=== PATIENT | male | born 1985 | race Caucasian/White ===

== ENCOUNTER 2024-06-30 12:41 | Inpatient (IN) | payer OTHER, SELFPAY ==
[2024-06-28 18:39] VITALS: BP 148/88
[2024-06-28 19:03] LABS: % Basophils 0.4 % (0-2); % Immature Granulocytes 0.3 % (0-0.5); % Lymphocytes 17.2 % (20.5-51.1); % Monocytes 7.9 % (1.7-9.3); % Neutrophils 73.2 % (42.2-75.2); Absolute Eosinophils 0.1 10^3/uL (0-0.7); Absolute Lymphocytes 1.7 10^3/uL (1.2-3.4); Absolute Monocytes 0.8 10^3/uL (0.1-0.6); Absolute Neutrophils 7.1 10^3/uL (1.4-6.5); Hematocrit 39.3 % (39.0-52.0); Hemoglobin 13.3 g/dL (13.0-18.0); Mean Corp Hgb Conc. 33.8 g/dL (33.0-37.0); Mean Corpuscular Hgb 27.9 pg (27.0-31.0); Mean Corpuscular Volume 82.4 fL (80.0-94.0); Mean Platelet Volume 9.9 fL (7.4-10.4); Nucleated Red Blood Cells % 0 % (-); Platelet Count 288 10^3/uL (130-400); Red Blood Cell Count 4.77 10^6/uL (4.70-6.10); Red Cell Dist. Width 14.2 % (11.5-14.5); White Blood Cell Count 9.7 10^3/uL (4.8-10.8)
[2024-06-28 19:10] LABS: Lactic Acid 1.5 mmol/L (0.7-2.0)
[2024-06-28 19:17] LABS: ALT (SGPT) 24 U/L (0-50); AST (SGOT) 25 U/L (17-59); Albumin 4.9 g/dl (3.5-5.0); Alkaline Phosphatase 100 U/L (38-126); Blood Urea Nitrogen 11 mg/dl (9-20); Calcium 9.5 mg/dl (8.4-10.2); Carbon Dioxide 22 mmol/L (22-30); Chloride 100 mmol/L (98-107); Glucose 141 mg/dl (70-99); Sodium 139 mmol/L (135-145); Total Bilirubin 0.5 mg/dl (0.2-1.3); Total Protein 7.7 g/dl (6.3-8.2); eGFR > 60.00
[2024-06-28] MEDS: DILAUDID 0.5 MG IV ×3 (19:55→23:13)
[2024-06-28] MEDS: NSS 500 IV (19:55)
--- NOTE | 2024-06-28 20:15 | ED.GENMED ---
History of Present Illness
General
Chief Complaint: Abdominal Symptoms
Source: patient
Exam Limitations: none
Time Seen by Provider: 06/28/24 19:26
Nursing documentation reviewed up to this point in time: agreed with
History of Present Illness
History of Present Illness:
Patient presents to ED secondary to intermittent abdominal pain with nausea sensation over the past 2 days, similar to his previous episode of diverticulitis. However, patient also has had multiple abdominal surgeries secondary to diverticulitis,
and also has been admitted in the recent past secondary to bowel obstruction. Patient does report having had normal bowel move this morning. Denies trauma. Denies fever or chills. Denies vomiting. Denies diarrhea. Denies recent change in
medications or diet.
Past History
Past History
ED Past Medical History: Asthma and Other (Diverticulitis)
ED Past Surgical History: Bowel resection (Partial bowel resection with colostomy and reversal, Ileostomy and reversal) and Orthopedic (Right wrist surgery)
Social History
Tobacco: Former smoker
Alcohol: None
Drug: None and Marijuana
Personal: Single
Living: alone
Employment: Employed
Review of Systems
Review of Systems
Allergies reviewed?: Yes
All Other Systems: ROS reviewed and negative except as documented in HPI and ROS
Constitutional: Reports no symptoms; Denies fever
ABD/GI: Reports abdominal pain and nausea; Denies vomiting or diarrhea
: Reports no symptoms
Musculoskeletal: Reports no symptoms
Skin: Reports no symptoms
Neurological: Reports no symptoms
Phy Exam
Physical Exam
Physical Exam:
Physical Exam
General: mild painful distress, not acutely ill. afebrile
Head: nc/at. eomi
Neck: supple. no meningeal signs.
Abdomen: normal bowel sounds. mild diffuse tenderness to palpation, with mild distention. multiple well healed abdominal scars noted.
Neuro: alert and oriented. no focal neurological deficits
Skin: no rash
Psychiatric: well kept. interactive and cooperative
Extremities: no edema. no calf tenderness.
Course
Orders/Labs/Results
Orders:
Orders
06/28/24 18:50
CMP [Comprehensive Metabolic Panel] Urgent
Complete Blood Count/With Diff Urgent
Lactic Acid Urgent
06/28/24 19:38
CR Obstruct Series W/pa Chest Urgent
Comment:
Reason For Exam: abdominal pain w distention
06/28/24 19:39
0.9% Sodium Chloride 500 ml [Nss] 500 ml IV BOLUS
HYDROmorphone [Dilaudid] 0.5 mg IV NOW STA
06/28/24 20:50
Iohexol [Omnipaque] See Protocol PO NOW STA
06/28/24 20:51
CT Abd/pel W Iv And Oral Contr Urgent
Comment:
Reason For Exam: abdominal pain
06/28/24 21:29
HYDROmorphone [Dilaudid] 0.5 mg IV NOW STA
06/28/24 21:30
HYDROmorphone [Dilaudid] 0.5 mg .ROUTE .STK-MED ONE
06/28/24 23:10
HYDROmorphone [Dilaudid] 0.5 mg IV NOW STA
Ondansetron Injectable [Zofran] 4 mg IV NOW STA
06/28/24 23:12
Ondansetron Injectable [Zofran] 4 mg .ROUTE .STK-MED ONE
Abnormal Lab Results
06/28/24
18:50
Absolute Neuts (auto) 7.1 H 10^3/uL
(1.4-6.5)
Absolute Monos (auto) 0.8 H 10^3/uL
(0.1-0.6)
Lymphocytes % 17.2 L %
(20.5-51.1)
Glucose 141 H mg/dl
(70-99)
06/28/24 18:50
06/28/24 18:50
Vital Signs
Initial and Last Documented VS:
Initial Vital Signs
Temp Pulse Resp BP Pulse Ox
100.1 F 107 18 148/88 97
06/28/24 18:39 06/28/24 18:39 06/28/24 18:39 06/28/24 18:39 06/28/24 18:39
Last Documented Vital Signs
Temp Pulse Resp BP Pulse Ox
100.1 F 73 18 143/69 99
06/28/24 18:39 06/28/24 23:43 06/28/24 23:43 06/28/24 23:43 06/28/24 23:43
MDM/Problems Addressed
MDM/Problems Addressed:
CT report reviewed and discussed with patient, with differential diagnosis of enteritis versus ileus versus partial bowel obstruction. In light of patient's persistent pain despite medications provided, patient will be admitted for further
evaluation and treatment.
ED Attending Note
-
Portions of this chart may have been created with voice recognition software.� Occasional wrong word or��sound alike� substitutions may have occurred due to the inherent limitations of voice recognition software.
Discharge Plan
Departure
Patient Disposition: Admit
Date of Disposition: 06/29/24
Time of Disposition: 00:02
Presentation/result/management discussed w/ accepting MD/DO: Hospitalist
Discharge Problem:
Partial bowel obstruction
Prescriptions:
No Action
omeprazole 20 mg Tablet,Delayed Release (Dr/Ec)
20 mg PO DAILY
polyethylene glycol 3350 [HealthyLax] 17 gram Powder In Packet
17 g PO DAILY 30 Days Qty: 30 0RF
Rx Instructions:
hold if diarrhea
levofloxacin 500 mg tablet
500 mg PO DAILY 6 Days Qty: 6 0RF
metronidazole 500 mg tablet
500 mg PO Q8H 6 Days Qty: 18 0RF
oxycodone 5 mg tablet
5 mg PO BID PRN (Reason: moderate severe pain) 5 Days Qty: 10 0RF
Rx Instructions:
Use if pain not relieved by Tylenol
Referrals:
NONE,* [Family Provider] -
Interventions
Interventions:
*Risk Screen - Suicide Last Done: 06/28/24 18:39
*General Assessment Last Done: 06/28/24 20:17
*Neglect/Abuse Screening Last Done: 06/28/24 18:39
ED- Fall Risk Assessment Last Done: 06/28/24 20:17
*ED COVID-19 Vaccine History Last Done: 06/28/24 20:17
RX-Ljbalf-Azmbsmdova Assessment Last Done: 06/28/24 20:16
Discharge Date and Time
Print Language: CROATIAN
[2024-06-28] MEDS: OMNIPAQUE 50 ML PO (20:55)
[2024-06-28] MEDS: ZOFRAN 4 MG IV (23:13)
[2024-06-28 23:43] VITALS: BP 143/69
[2024-06-29] MEDS: NSS 500 IV (00:24)
--- NOTE | 2024-06-29 01:05 | HPS.HSE ---
Family Physician
-
Family Physician: * NONE
Chief Complaint
-
Abdominal pain and nausea
History of Present Illness
This is a 39-year-old male with a past medical history of diverticulitis status post multiple bowel resections for recurrent diverticulitis presented to the emergent department with 1 day of abdominal symptoms.
Patient had last diverticulitis flare about 8 months ago not requiring a bowel resection at that time. He has however had multiple bowel resections with forced colostomy and then reanastomosis followed by ileostomy and reanastomosis. He reports
that he started having feeling of on easiness and hiccups then abdominal pain that started 1 day ago. He vomited once on arrival in the emergency department. He denies fevers or chills. He denies diarrhea. No known sick contacts. Denies
abdominal bloating. Denies any new medications.
In the ED he had a temp of 100, blood pressure was normal at 143/60, heart rate was normal for CBC was normal which was within normal limits. The CT scan of the abdomen and pelvis pelvis shows partial small bowel obstruction with filled loops of
small bowel adjacent to the anastomosis and some surrounding stranding.
Medical History
Past Medical History
Past Medical History: Reports GERD and Other (Diverticulitis)
Past Surgical History: Reports Bowel Resection
Social History
Tobacco: Non-smoker
Alcohol: None
Drug: Marijuana
Personal: Single
Living: Alone
Employment: Employed
Family History
Family History: Not pertinent
Allergies / Home Medications
Allergies reflects when Allergies were last updated in [facility].
Home Medications with original date entered in [facility]
Allergy/Medication List:
Allergies
Allergy/AdvReac Type Severity Reaction Status Date / Time
Penicillins Allergy as a baby; Verified 02/01/23 00:32
tolerated
Zosyn and
cephalosporins
Home Medications
omeprazole 20 mg tablet,delayed release 20 mg PO DAILY Gastrointestinal Issue 05/30/23
Review of Systems
-
History Source: Patient
Constitutional: Reports No Symptoms
EENT: Reports No Symptoms
Respiratory: Reports No Symptoms
Abdomen/GI: Reports Abdominal Pain and Nausea
: Reports No Symptoms
Musculoskeletal: Reports No Symptoms
Neurological: Reports No Symptoms
Endocrine: Reports No Symptoms
Hematologic/Lymphatic: Reports No Symptoms
Psych: Reports No Symptoms
Physical Exam
Vital Signs
Vital Signs
Temp Pulse Resp BP Pulse Ox
100.1 F 73 18 143/69 99
06/28/24 18:39 06/28/24 23:43 06/28/24 23:43 06/28/24 23:43 06/28/24 23:43
Physical Exam
General: Well Developed, Well Nourished, No Apparent Distress and Comfortable
HEENT: NormoCephalic, Anicteric, Moist mucous membranes and Atraumatic
Respiratory: Clear
Cardiac: S1/S2 and Regular Rhythm
Breast: Deferred by me
GI: Soft, Non Tender and Non Distended
Rectal: Deferred by Provider
Genito-urinary: Deferred by me
Musculoskeletal: No Clubbing, No Cyanosis and No Edema
Skin: Warm
Neuro: AO x 3
Hematologic/Lymphatic: No Lymphadenopathy
Psych: Calm
Laboratory Results
-
06/28/24 18:50
06/28/24 18:50
Laboratory Results
Lactic Acid 1.5 mmol/L (0.7-2.0) 06/28/24 18:50
Total Bilirubin 0.5 mg/dl (0.2-1.3) 06/28/24 18:50
AST 25 U/L (17-59) 06/28/24 18:50
ALT 24 U/L (0-50) 06/28/24 18:50
Alkaline Phosphatase 100 U/L (38-126) 06/28/24 18:50
Data Reviewed
-
Diagnostic Radiology: Image Personally Visualized and interpreted
CT Scan: Report Reviewed by me
Lab Data: Labs Reviewed by me
Old Records: Reviewed
Impression/Plan
-
IMPRESSION:
39-year-old with history of recurrent diverticulitis status post multiple intra-abdominal surgeries for bowel resection who presents to the emergency department with abdominal pain and was found to have partial small bowel obstruction.
PLAN:
1. SBO -patient with abdominal pain, nausea and only 1 episode of clear vomiting. CT scan shows a partial small bowel obstruction. Abdominal exam is benign. Patient is nontoxic and hemodynamically stable. Low-grade temperature. Labs are
unremarkable.
- admit to med/surg obs
- NPO
- pain control and antiemetics, iv fluids
- no indiction for NG at this time
- consulted GI surgery (Patient of Dr. Bernard)
- ppi iv
DVT ppx - lovenox sq
Code Status - full code
[2024-06-29 01:50] VITALS: BP 121/70; BMI 27.5
[2024-06-29] MEDS: DILAUDID 0.5 MG IV ×5 (01:56→22:01)
[2024-06-29] MEDS: D5/0.45%NACL 1000 IV ×2 (01:59→21:00)
--- NOTE | 2024-06-29 03:05 | PTCARENOTE ---
patient admitted to 2124. oriented to room and POC. inst ammonia print operator juarez. call juarez within reach. admission assessment completed, IV nss infused 500cc, IV changed to d51/2 nss @75cc/hr.
--- NOTE | 2024-06-29 03:08 | PTCARENOTE ---
Called to pt room for IV dislodged. IV found to be completely out, IV team paged to place new line
[2024-06-29] MEDS: TORADOL 10 MG IV ×2 (03:42→11:39)
[2024-06-29 07:29] VITALS: BP 102/64
[2024-06-29 07:40] LABS: Blood Urea Nitrogen 11 mg/dl (9-20); Calcium 8.8 mg/dl (8.4-10.2); Carbon Dioxide 26 mmol/L (22-30); Chloride 100 mmol/L (98-107); Estimated Creatinine Clearance 101 ml/min; Glucose 97 mg/dl (70-99); Sodium 141 mmol/L (135-145); eGFR > 60.00
--- NOTE | 2024-06-29 08:11 | W.PN.HOSP.TC ---
Addendum entered and electronically signed by Norman Caldera MD 06/29/24 09:56:
I saw and evaluated the patient. I reviewed the resident�s note and agree with findings and plan as documented in the resident�s note.
Patient reports 1 episode of vomiting since admission that he describes as 'gagging.'
Gen: NAD, AAOx3.
Eyes: EOMI, PERRLA, no scleral icterus.
Neck: supple.
CV: RRR, +S1/S2, no m/r/g.
Resp: CTAB, no rales, wheezes, or rhonchi.
Abd: +BS, soft, mild distention and TTP
Skin: No rashes.
Neuro: CN 2-12 intact, non-focal.
Psych: Normal mood and affect.
CT A/P: Dilated small bowel loops containing fecal material just proximal to the right lower quadrant anastomosis. Bowel loops downstream to the anastomosis are decompressed. Oral contrast is not present in the dilated small bowel loops, either due
to decreased motility or acquisition prior to the contrast reaching this level. Small bowel loops demonstrate mild wall thickening with surrounding inflammatory changes, likely representing superimposed inflammation/infection. Similar findings were
seen previously on 05/30/2023, however the small bowel loops are more dilated on the current examination. Overall, findings favor either a partial small bowel obstruction or anastomotic stricture resulting in decreased motility. Consider repeat
abdominal radiograph to evaluate for oral contrast passage through the anastomosis. Stable postsurgical defects in the ventral abdominal wall.
Acute SBO:
-CT A/P reviewed, pt afebrile (no temps 100.4 F or greater) and without leukocytosis. Doubt acute infection. More likely findings on CT scan related to inflammation.
-NPO/IVFs, bowel rest
-c/s surgery
-check abd Xray to assess for passage of contrast
Original Note:
Today's Communication/Plan
-
C/w NPO, IVF, IV pain control/PPI.
Assessment / Plan
Assessment / Plan
39 year old male with a past medical history of chronic diverticulitis s/p multiple bowel resections who presented to the [facility] for 1 day of vomiting, abdominal pain.
#Partial Bowel Obstruction vs. Anastomotic Stricture
- Non-toxic, hemodynamically stable, Temp 100F, no leukocytosis
- CT Abd/Pelvis - dilation of multiple small bowel loops proximal to the right lower quadrant anastomosis, with the loops containing fecal material. Bowel wall thickening w/ mild surrounding inflammation. Suggestive of Partial SBO vs. Anastomotic
Stricture.
- Keep NPO, IVF D5 1/2NS 77cc/hr
- Tylenol/Toradol/Dilaudid prn for mild/mod/severe pain
- Zofran prn
- Colorectal Surgery consult placed; will observe for now.
#GERD - IV Protonix as above
#Dispo - Med/Surg
#Diet - NPO
#DVT PPx - Lovenox SC
#Code Status - Full Code
Anticipated Discharge: 24 - 48 hours
Subjective/Interval History
-
Overnight he required Toradol & dilaudid for pain control. nausea persisted but was improved with Zofran. No vomiting, fevers overnight. This morning he is experiencing nausea. Last bowel movement was the morning before presentation to the ED. It
was nonbloody, non painful to pass. Non-toxic in appearance with moments of painful distress.
Objective Data
-
Labs:
Laboratory Results
06/29/24
06:08
Sodium 141
Potassium 4.0
Chloride 100
Carbon Dioxide 26
BUN 11
Creatinine 0.9
Glucose 97
Calcium 8.8
Vital Signs:
Vital Signs
Temp Pulse Resp BP Pulse Ox
98.1 F 58 17 102/64 99
06/29/24 07:29 06/29/24 07:29 06/29/24 07:29 06/29/24 07:29 06/29/24 07:29
I&O
06/28/24 06/29/24 06/30/24
06:59 06:59 06:59
Intake Total 865 / 875
Balance 875 / 875
Review of Systems
-
History Source: Patient
All other systems: Reviewed and negative
Constitutional: Reports No Appetite; Denies Fever or Night Sweats
EENT: Reports No Symptoms Reported
Respiratory: Reports No Symptoms
Cardiac: Reports No Symptoms
Abdomen/GI: Reports Abdominal Pain, Nausea and Bloated; Denies Vomiting or Diarrhea
Breast: Reports N/A
Genitourinary: Reports No Symptoms
Musculoskeletal: Reports No Symptoms
Skin: Reports No Symptoms
Neuro: Reports No Symptoms
Endocrine: Reports No Symptoms
Hematologic / Lymphatic: Reports No Symptoms
Allergy / Immunology: Reports No Symptoms
Physical Exam
-
General: Well Developed, Well Nourished and Pain
HEENT: Normocephalic, Atraumatic and Moist Mucous Membranes
Respiratory: Clear to Auscultation; Negative Rales or Rhonchi
Cardiac: Regular Rhythm and S1/S2; Negative Murmur or Rub
Breast: N/A
GI: Soft, Tender, Distended and Other (Past ileostomy and colostomy surgical sites w/o herniation.); Negative Normal Bowel Sounds (hypoactive)
Genito-urinary: Deferred by me
Musculoskeletal: No Clubbing, No Cyanosis and No Edema
Neuro: Awake, Alert, Oriented, No Motor Deficits and No Sensory Deficits
Psych: Calm
[2024-06-29] MEDS: ZOFRAN 4 MG IV ×2 (09:20→17:20)
[2024-06-29] MEDS: PROTONIX IV 40 MG IV (09:48)
[2024-06-29] MEDS: NSS (PRESERVATIVE FREE) 10 ML IV (09:48)
--- NOTE | 2024-06-29 10:12 | CON.CRS ---
Consultation
-
Date/Time Consultation Requested: 06/29/2024, 01:43
Date/Time Consultation Performed: 06/29/2024, 08:50
Requesting Provider: Monserrat Klein MD
Performing Provider: Donald Mckenzie MD
Reason for Consultation: SBO
Medical History
-
Chief Complaint: abdominal pain
History of Present Illness:
39-year-old male known to our service after undergoing emergency sigmoid resection and colostomy on 03/01/2022 for perforated sigmoid diverticulitis and subsequently a colostomy closure on 09/2022 complicated by a leak. He then underwent a repair
and diverting loop ileostomy which was subsequently closed on 12/10/2022. He was then admitted 8 days later with a small bowel obstruction that resolved without surgery. He was readmitted with a second small bowel obstruction and underwent a
laparotomy on 03/04/2023. At that time there was a localized abscess at the previous ileostomy closure site. A new anastomosis was created. He was then readmitted on 05/31/2023 with a partial small bowel obstruction that resolved without surgery.
He had been doing well until a couple months ago where he had been feeling 'blocked' and went to [facility]. He was diagnosed with a small bowel obstruction and was admitted for 2 or 3 days without surgery. He continued to feel well
until about 2 days ago where he had abdominal pain, nausea, and unable to eat for about 2 days. His last bowel movement was yesterday morning and his last flatus was 2 days ago. Subsequently he went to [place] [facility] given his symptoms.
In the ER his CT of the abdomen and pelvis showed dilated small bowel loops containing fecal material just proximal to the right lower quadrant anastomosis. There are bowel loops downstream to the anastomosis that are decompressed. Findings were
seen previously on 05/30/2023. Overall findings favor a partial small bowel obstruction or anastomotic stricture resulting in decreased mobility. The patient's WBC was 6.0 on admission and 9.7 today. He has remained afebrile and his vital signs
remain normal. We have been consulted for further surgical opinion.
Past Medical History
Past Medical History: Other (Asthma, Diverticulitis and GERD)
Past Surgical History: Other (Bowel Resection (as per the HPI))
Social History
Tobacco: Former Smoker
Alcohol: None
Drug: Marijuana
Personal: Single
Living: Alone
Employment: Employed
Family History
Family History: Reviewed & Not Pertinent
Allergies / Home Medications
Allergy/AdvReac Type Severity Reaction Status Date / Time
Penicillins Allergy as a baby; Verified 02/01/23 00:32
tolerated
Zosyn and
cephalosporins
�Medication �Instructions �Recorded �Confirmed �Type
omeprazole 20 mg tablet,delayed 20 mg PO DAILY Gastrointestinal 05/30/23 05/30/23 History
release Issue
levofloxacin 500 mg tablet 500 mg PO DAILY 6 days #6 tabs 06/03/23 Rx
metronidazole 500 mg tablet 500 mg PO Q8H 6 days #18 tabs 06/03/23 Rx
oxycodone 5 mg tablet 5 mg PO BID PRN moderate severe 06/03/23 Rx
pain 5 days #10 tabs
polyethylene glycol 3350 17 gram 17 g PO DAILY 30 days #30 ea 06/03/23 Rx
oral powder packet (HealthyLax)
Review of Systems
-
History Source: Patient
All other systems: Negative unless noted
Abdomen/GI: Abdominal Pain, Nausea and Constipated
A 10 point review of systems was completed, and was negative except as per HPI.
Physical Exam
Vital Signs
Temp 98.1 F 06/29/24 07:29
Pulse 58 06/29/24 07:29
Resp Rate 17 06/29/24 07:29
Blood pressure 102/64 06/29/24 07:29
SaO2 99 06/29/24 09:29
06/28/24 06/29/24 06/30/24
06:59 06:59 06:59
Actual Weight 79.696 kg
Body Mass Index (BMI) 27.5
Lab Results / Allergies
06/28/24 18:50
06/29/24 06:08
WBC 9.7 10^3/uL (4.8-10.8) 06/28/24 18:50
Hgb 13.3 g/dL (13.0-18.0) 06/28/24 18:50
Hct 39.3 % (39.0-52.0) 06/28/24 18:50
Plt Count 288 10^3/uL (130-400) 06/28/24 18:50
Abs Immat Gran (auto) 0.0 10^3/uL (0-0.05) 06/28/24 18:50
Neutrophils % 73.2 % (42.2-75.2) 06/28/24 18:50
Allergy/AdvReac Type Severity Reaction Status Date / Time
Penicillins Allergy as a baby; Verified 02/01/23 00:32
tolerated
Zosyn and
cephalosporins
Physical Exam
General: Well Developed, Well Nourished and No Apparent Distress
GI: Soft, Tender (mild) and Distended (mild)
Skin: Warm and Dry
Neuro: AO x 3
Psych: Calm
Data Reviewed
-
CT Scan: Image Personally Visualized and interpreted, Report Reviewed by me and Discussed with Patient
Labs: Labs Reviewed by me, Discussed with Physician and Discussed with Patient
Old Records: Reviewed
Assessment / Plan
-
Assessment: 39-year-old male with a past medical history of sigmoid resection and colostomy due to perforated sigmoid diverticulitis with subsequent colostomy closure complicated by a leak and diverting loop ileostomy which was closed last year and
multiple small bowel obstructions since, now admitted with a small bowel obstruction
Plan
-No plans for surgery at this time
-Remain n.p.o. with IV fluids
- Abdominal x-rays in the morning
- Encourage patient to get out of bed and walk
- Will require an NG tube if episodes of vomiting
--- NOTE | 2024-06-29 17:23 | PTCARENOTE ---
pt received prn zofran this evening from this nurse for nausea and dry heaving. see MAR for proper documentation.
[2024-06-29 23:23] VITALS: BP 137/91
[2024-06-30 07:20] VITALS: BP 119/69
[2024-06-30] MEDS: NSS (PRESERVATIVE FREE) 10 ML IV (08:21)
[2024-06-30] MEDS: PROTONIX IV 40 MG IV (08:21)
[2024-06-30] MEDS: DILAUDID 0.5 MG IV ×3 (08:22→23:35)
[2024-06-30] MEDS: D5/0.45%NACL 1000 IV ×2 (08:24→21:14)
--- NOTE | 2024-06-30 08:41 | W.PN.CRS1 ---
Today's Communication / Plan
-
clears
Assessment/Plan
-
Assessment: 39-year-old male with a past medical history of sigmoid resection and colostomy due to perforated sigmoid diverticulitis with subsequent colostomy closure complicated by a leak and diverting loop ileostomy which was closed last year and
multiple small bowel obstructions since, now admitted with a small bowel obstruction
Plan
-No plans for surgery at this time
-Advance diet to clears. If has flatus later today, will advanec diet.
- Abdominal x-rays from yesterday show nonspecific bowel gas pattern without convincing signs of obstruction.
- Encouraged patient to get out of bed and walk
- Will require an NG tube if episodes of vomiting
Subjective Data
Subjective Data
Date of Service: June 30, 2024
Patient states he has some mild right sided pain. He overall feels better. He did have an episode of vomiting last night but it was after IV Dilaudid. He states he has not been nauseous since.
Objective Data
-
Vital Signs
Temp Pulse Resp BP Pulse Ox
98.5 F 63 18 119/69 96
06/30/24 07:20 06/30/24 07:20 06/30/24 07:20 06/30/24 07:20 06/30/24 07:20
Intake & Output
06/29/24 06/30/24 07/01/24
06:59 06:59 06:59
Intake Total 875 / 875 1650 / 1650
Balance 875 / 875 1650 / 1650
Intake:
IV fluids (Total) 875 / 875 1650 / 1650
Other:
Number of approximated SMALL 1
amounts of urine
Number of approximated MODERATE 1 2
amounts of urine
Lab Results
06/28/24 18:50
06/29/24 06:08
Physical Exam
-
General: No Acute Distress and AOx3
Abdomen: Soft, Distended (mild) and Tender (mild right sided)
Skin: Warm and Dry
--- NOTE | 2024-06-30 09:54 | W.PN.HOSP.TC ---
Addendum entered and electronically signed by Michael Reza MD 06/30/24 12:28:
39-year-old male with history of sigmoid resection colostomy secondary to perforated sigmoid diverticulitis and subsequent colostomy closure complicated by leak and diverting loop ileostomy. Diverting loop ileostomy was closed last year. Patient
has a history of multiple small bowel obstructions since then.
I personally performed a history and physical exam of the patient and discussed management with the resident. I reviewed the resident's note and agree with the documented findings and plan of care HPI/CC except changes in my documentation.
CVS: S1-S2 normal
Chest: CTA B/L
Abdomen: Soft, , No BS, Mild right sided tenderness
Extremities: No edema, normal pulses
ECOSYSTEM ECOLOGY PROFESSOR: Non focal exam
# Small bowel obstruction
Conservative management
No plan for surgery now
Clear liquid started
Encourage ambulation
Avoid narcotics
# History of perforated sigmoid diverticulitis with sigmoid resection and colostomy 2021.
Colostomy closure complicated by leak and diverting loop ileostomy
Diverting loop ileostomy closed -November 2022
# Asthma-stable
# GERD-continue PPI
# Ex-smoker
# DVT prophylaxis-Lovenox
# Full code
Part of this note was created using voice recognition system. Occasional wrong word or��sound alike� substitutions may have inadvertently occurred due to the inherent limitations of voice recognition software. If noted kindly bring it to my
attention for correction.
Original Note:
Today's Communication/Plan
-
C/w IVF, pain medications, IV zofran, advance diet to clears
Assessment / Plan
Assessment / Plan
39 year old male with a past medical history of chronic diverticulitis s/p multiple bowel resections who presented to the [facility] for 1 day of vomiting, abdominal pain.
#Partial Bowel Obstruction vs. Anastomotic Stricture
- Non-toxic, hemodynamically stable, afebrile overnight, no leukocytosis
- CT Abd/Pelvis - dilation of multiple small bowel loops proximal to the right lower quadrant anastomosis, with the loops containing fecal material. Bowel wall thickening w/ mild surrounding inflammation. Suggestive of Partial SBO vs. Anastomotic
Stricture.
- Keep NPO, IVF D5 1/2NS 77cc/hr
- Tylenol/Toradol/Dilaudid prn for mild/mod/severe pain
- Zofran prn
- Colorectal Surgery consult placed; will observe for now.
- Will advance to clear liquid diet today and observe for symptoms, possibly advance to solids
#GERD - IV Protonix as above
#Dispo - Med/Surg
#Diet - Clear Liquids
#DVT PPx - Lovenox SC
#Code Status - Full Code
Anticipated Discharge: 24 - 48 hours
Subjective/Interval History
-
Feels well this morning. Had some abdominal pain last night which required one dose of IV dilaudid. pain is in the same R upper quadrant, but is less in intensity compared to yesterday. He has no other acute complaints at this time.
Objective Data
-
Vital Signs:
Vital Signs
Temp Pulse Resp BP Pulse Ox
98.5 F 63 18 119/69 96
06/30/24 07:20 06/30/24 07:20 06/30/24 07:20 06/30/24 07:20 06/30/24 07:20
I&O
06/29/24 06/30/24 07/01/24
06:59 06:59 06:59
Intake Total 875 / 875 1650 / 1650
Balance 875 / 875 1650 / 1650
Review of Systems
-
History Source: Patient
All other systems: Reviewed and negative
Abdomen/GI: Reports Abdominal Pain and Nausea
Physical Exam
-
General: Well Developed, Well Nourished, No Apparent Distress, Comfortable and Conversant
HEENT: Normocephalic, Atraumatic, Moist Mucous Membranes, Anicteric, [place] Conjunctivae and PERRLA
Respiratory: Clear to Auscultation; Negative Wheezes, Rales or Rhonchi
Cardiac: Regular Rhythm and S1/S2; Negative Murmur or Rub
Breast: N/A
GI: Soft, Tender (R upper quadrant near prior ileostomy site) and Distended; Negative Normal Bowel Sounds (hypoactive bowel sounds) or No Hernias
Musculoskeletal: No Clubbing, No Cyanosis and No Edema
Neuro: Awake, Alert and Oriented
[2024-06-30] MEDS: TYLENOL 650 MG PO (10:04)
[2024-06-30] MEDS: TORADOL 10 MG IV (14:20)
[2024-06-30 15:20] VITALS: BP 124/64
--- NOTE | 2024-06-30 16:08 | CM ---
Addendum entered by Huong Riley 06/30/24 16:14:
patient also states he is having difficulties with bills and CM provided information about supports.
Original Note:
Patient seen at bedside. Patient understands that he was admitted as OBS and is now changed to INP status. Patient confirmed that he lives in [place] to [facility] for the residency program. Patient does not have a copy of his insurance card and would
like to call the member service to follow up on physician options. Patient does not have a PCP. Patient uses the [facility] in [place]. Patient has a car here for transportation home. CM will continue to follow for discharge planning needs.
Plan; home with no needs; follow up with insurance for PCP options
[2024-06-30 23:48] VITALS: BP 138/78
[2024-07-01 07:25] VITALS: BP 100/61
[2024-07-01 07:34] LABS: Hematocrit 33.4 % (39.0-52.0); Hemoglobin 11.2 g/dL (13.0-18.0); Mean Corp Hgb Conc. 33.5 g/dL (33.0-37.0); Mean Corpuscular Hgb 27.9 pg (27.0-31.0); Mean Corpuscular Volume 83.3 fL (80.0-94.0); Mean Platelet Volume 9.9 fL (7.4-10.4); Platelet Count 249 10^3/uL (130-400); Red Blood Cell Count 4.01 10^6/uL (4.70-6.10); Red Cell Dist. Width 14.1 % (11.5-14.5); White Blood Cell Count 5.2 10^3/uL (4.8-10.8)
[2024-07-01 08:03] LABS: Blood Urea Nitrogen 10 mg/dl (9-20); Calcium 8.9 mg/dl (8.4-10.2); Carbon Dioxide 30 mmol/L (22-30); Chloride 103 mmol/L (98-107); Estimated Creatinine Clearance 101 ml/min; Glucose 100 mg/dl (70-99); Potassium 4.5 mmol/L (3.5-5.1); Sodium 140 mmol/L (135-145); eGFR > 60.00
[2024-07-01] MEDS: TORADOL 10 MG IV (09:14)
[2024-07-01] MEDS: NSS (PRESERVATIVE FREE) 10 ML IV (09:16)
[2024-07-01] MEDS: PROTONIX IV 40 MG IV (09:16)
--- NOTE | 2024-07-01 09:28 | W.PN.CRS1 ---
Today's Communication / Plan
-
Diet advancement
Assessment/Plan
-
Assessment: 39-year-old male with a past medical history of sigmoid resection and colostomy due to perforated sigmoid diverticulitis with subsequent colostomy closure complicated by a leak and diverting loop ileostomy which was closed last year and
multiple small bowel obstructions since, now admitted with a small bowel obstruction
AFVSS
Labs stable
06/29 Abdominal x-rays showed nonspecific bowel gas pattern without convincing signs of obstruction.
Tolerating diet with +flatus
Plan
-No plans for surgery at this time
-Advance diet to low residue
-Clear from surgical standpoint for d/c once tolerating diet
Subjective Data
Subjective Data
Date of Service: July 01, 2024
Patient seen and examined at bedside with Dr. Saldaña. Denies n/v. Tolerating clears. Passing quite a bit of flatus. Denies pain. Ambulating in room
Objective Data
-
Vital Signs
Temp Pulse Resp BP Pulse Ox
98.6 F 70 16 100/61 97
07/01/24 07:25 07/01/24 07:25 07/01/24 07:25 07/01/24 07:25 07/01/24 07:25
Intake & Output
06/30/24 07/01/24 07/02/24
06:59 06:59 06:59
Intake Total 1650 / 1650 2820 / 2820
Balance 1650 / 1650 2820 / 2820
Intake:
Oral fluids 1919 / 192
IV fluids (Total) 1650 / 1650 900 / 900
Other:
Number of approximated MODERATE 2 2
amounts of urine
Lab Results
07/01/24 06:40
07/01/24 06:40
Physical Exam
-
General: No Acute Distress and AOx3
Abdomen: Soft, Distended (mild) and Other (incisional hernia/umbilical hernia soft/reducible but tender)
Skin: Warm and Dry
--- NOTE | 2024-07-01 09:59 | W.PN.HOSP.TC ---
Today's Communication/Plan
-
See how he tolerates LR diet
Assessment / Plan
Assessment / Plan
39 year old male with a past medical history of chronic diverticulitis s/p multiple bowel resections who presented to the [facility] for 1 day of vomiting, abdominal pain.
Has flatus today
CVS: S1-S2 normal
Chest: CTA B/L
Abdomen: Soft,mild right sided tenderness, no guarding, BS decreased.
Extremities: No edema
# Small bowel obstruction
Passing flatus
Conservative management
No plan for surgery now
LR diet started
Awaiting a BM
Encourage ambulation
Avoid narcotics
# History of perforated sigmoid diverticulitis with sigmoid resection and colostomy 2021.
Colostomy closure complicated by leak and diverting loop ileostomy
Diverting loop ileostomy closed -November 2022
# Asthma-stable
# GERD-continue PPI
# Ex-smoker
# DVT prophylaxis-Lovenox
# Full code
D/W RN at bed side
Part of this note was created using voice recognition system. Occasional wrong word or��sound alike� substitutions may have inadvertently occurred due to the inherent limitations of voice recognition software. If noted kindly bring it to my
attention for correction.
Anticipated Discharge: Within 24 hours
Subjective/Interval History
-
Date of Service: July 01, 2024
Objective Data
-
Labs:
Laboratory Results
07/01/24
06:40
WBC 5.2
Hgb 11.2 L
Hct 33.4 L
Plt Count 249
Sodium 140
Potassium 4.5
Chloride 103
Carbon Dioxide 30
BUN 10
Creatinine 0.9
Glucose 100 H
Calcium 8.9
Vital Signs:
Vital Signs
Temp Pulse Resp BP Pulse Ox
98.6 F 70 16 100/61 97
07/01/24 07:25 07/01/24 07:25 07/01/24 07:25 07/01/24 07:25 07/01/24 07:25
I&O
06/30/24 07/01/24 07/02/24
06:59 06:59 06:59
Intake Total 1650 / 1650 2820 / 2820
Balance 1650 / 1650 2820 / 2820
[2024-07-01] MEDS: D5/0.45%NACL IV (10:31)
[2024-07-01 15:10] VITALS: BP 142/82
[2024-07-01 22:47] VITALS: BP 152/92
[2024-07-02 07:20] VITALS: BP 108/56
--- NOTE | 2024-07-02 08:33 | W.PN.CRS1 ---
Addendum entered and electronically signed by Kiran Saldaña MD 07/02/24 10:34:
I saw and examined the patient independently.
The Card Puncher's note was reviewed and I agree with the note, assessment and plan except where noted below.
Comment: 39-year-old male with recurrent small bowel obstructions here with similar, now clinically resolved.
Tolerating a low residue diet
Clear from the surgical standpoint for discharge per primary team.
Follow-up with colorectal surgery as needed.
Original Note:
Today's Communication / Plan
-
dispo planning
Assessment/Plan
-
Assessment: 39-year-old male with a past medical history of sigmoid resection and colostomy due to perforated sigmoid diverticulitis with subsequent colostomy closure complicated by a leak and diverting loop ileostomy which was closed last year and
multiple small bowel obstructions since, now admitted with a small bowel obstruction
AFVSS
06/29 Abdominal x-rays showed nonspecific bowel gas pattern without convincing signs of obstruction.
Tolerating diet with +flatus/BM's
Plan
-c/w LRD
-Clear from surgical standpoint for discharge, final dispo as per primary team
Subjective Data
Subjective Data
Date of Service: July 02, 2024
Patient seen and examined at bedside with Dr. Saldaña. Denies n/v. tolerating diet. Denies pain. Passing flatus/stools.
Objective Data
-
Vital Signs
Temp Pulse Resp BP Pulse Ox
97.9 F 62 16 108/56 98
07/02/24 07:20 07/02/24 07:20 07/02/24 07:20 07/02/24 07:20 07/02/24 07:20
Intake & Output
07/01/24 07/02/24 07/03/24
06:59 06:59 06:59
Intake Total 2820 / 2820 1580 / 1580
Balance 2819 / 2819 158 / 1579
Intake:
Oral fluids 1919
IV fluids (Total) 900 / 900
Other:
Number of approximated MODERATE 2 3
amounts of urine
Number of approximated LARGE 3
amounts of urine
Number of unmeasured liquid
stools
Rectum 1
Lab Results
07/01/24 06:40
07/01/24 06:40
Physical Exam
-
General: No Acute Distress and AOx3
Abdomen: Soft, Non Distended, Non Tender and Other (incisional hernia/umbilical hernia soft/reducible )
Skin: Warm and Dry
[2024-07-02] MEDS: NSS (PRESERVATIVE FREE) 10 ML IV (09:38)
[2024-07-02] MEDS: PROTONIX IV 40 MG IV (09:38)
--- NOTE | 2024-07-02 14:15 | W.PN.HOSP.TC ---
Today's Communication/Plan
-
discharge
Assessment / Plan
Assessment / Plan
39 year old male with a past medical history of chronic diverticulitis s/p multiple bowel resections who presented to the [facility] for 1 day of vomiting, abdominal pain.
Having bowel movements.
CVS: S1-S2 normal
Chest: CTA B/L
Abdomen: Soft,mild right sided tenderness, no guarding, BS decreased.
Extremities: No edema
# Small bowel obstruction
Resolved with conservative management
Tolerating LR diet.
# History of perforated sigmoid diverticulitis with sigmoid resection and colostomy 2021.
Colostomy closure complicated by leak and diverting loop ileostomy
Diverting loop ileostomy closed -November 2022
# Asthma-stable
# GERD-continue PPI
# Ex-smoker
# DVT prophylaxis-Lovenox
# Full code
D/W RN
Part of this note was created using voice recognition system. Occasional wrong word or��sound alike� substitutions may have inadvertently occurred due to the inherent limitations of voice recognition software. If noted kindly bring it to my
attention for correction.
Anticipated Discharge: Today
Subjective/Interval History
-
Date of Service: July 02, 2024
Objective Data
-
Vital Signs:
Vital Signs
Temp Pulse Resp BP Pulse Ox
97.9 F 62 16 108/56 98
07/02/24 07:20 07/02/24 07:20 07/02/24 07:20 07/02/24 07:20 07/02/24 08:30
I&O
07/01/24 07/02/24 07/03/24
06:59 06:59 06:59
Intake Total 2820 / 2820 1580 / 1580 780 / 780
Balance 2820 / 2820 1580 / 1580 780 / 780
--- NOTE | 2024-07-02 14:28 | W.DS.TRANS ---
Addendum entered and electronically signed by Michael Reza MD 07/02/24 15:00:
Dictation- [id number]
Original Note:
DC Summary - Receptionist Nurse
-
Discharge Instructions:
Discharge Diagnosis/Procedures Small bowel obstruction, GERD
Diet Low Fiber
Activity As tolerated
Driving Restrictions As prior to admission
Instructions: Low Fiber Diet
Stand-Alone Forms:
Changes to Home Medications: No
Discharge Medications:
DC Medications w/original date entered in [email or web address]
omeprazole 20 mg tablet,delayed release 20 mg PO DAILY Gastrointestinal Issue 05/30/23
acetaminophen 325 mg tablet 650 mg (2 x 325 mg) PO Q4HPRN PRN pain #0 tabs 07/02/24
polyethylene glycol 3350 17 gram oral powder packet (HealthyLax) 17 g PO DAILY Gastrointestinal issue 30 days #30 ea 07/02/24
Home Medication Changes
Pending Results: No
[2024-07-02 15:00] VITALS: BP 138/86
== END 2024-07-02 15:12 | disposition home or self-care (01) | DRG 390 ==
LOC: 2 NORTH 12:41
PROVIDERS: ADMITTING PHYSICIAN Internal Medicine; ATTENDING PHYSICIAN Hospitalist; EMERGENCY PHYSICIAN Emergency Medicine; OTHER PHYSICIAN Surgery
DX: K56.600 Partial intestinal obstruction, unspecified as to cause (principal); J45.998 Other asthma; K21.9 Gastro-esophageal reflux disease without esophagitis; Z87.891 Personal history of nicotine dependence
CPT/HCPCS: 74018; 74022; 74177; 80048; 80053; 83605; 85025; 85027; 96361; 96374; 96375; 96376; 99285; 99406; Q9967